=== PATIENT | male | born 1945 | race Caucasian/White ===

== ENCOUNTER 2018-09-05 13:33 | Observation (INO) | payer MEDICARE ==
--- NOTE | 2018-09-05 13:59 | ED ---
Altered Mental Status - HPI Summary HPI Summary: The patient is a 73 y/o M presenting to [facility] as transfer from [facility] for AMS and confusion, per , starting this morning. Patient had amnesia to events from this morning as well as yesterday. He states that he is unsure if the events were a dream or if it was a memory. Patient was noted to have abrasions to left hand unsure of how he got that. He notes that he always goes to his barn to exercise at 0900, which is where his found him wandering confusedly around. He denies MARTINEZ, neck pain, CP, and abd pain at this time. His pressure elevated to 200 systolic in the ED, and he reports moderate HTN hx. FHx : cardiac disease. No previous neuro hx. Head CT was unremarkable at the time that the patient had persistent amnesia, so he was transferred to [facility] for further workup. ECG at [facility] shows peaked T waves in V2 through V5. - History Of Current Complaint Chief Complaint: EDAltMentalStatus Stated Complaint: MEMORY LOSS PER EMS Time Seen by Provider: 09/05/18 13:34 Hx Obtained From: Patient, Family/Sensitometrist - , Other: - [facility] Onset/Duration: Still Present Timing: Lasting Hours - starting at 0900 Severity Initially: Severe Severity Currently: Severe Character: Confusion Aggravating Factor(s): Unknown Alleviating Factor(s): Unknown Associated Signs And Symptoms: Negative: Headache - Allergies/Home Medications Allergies/Adverse Reactions: Allergies Allergy/AdvReac Type Severity Reaction Status Date / Time Penicillins Allergy Unknown Verified 09/05/18 14:40 Reaction Details Home Medications: Home Medications Aspirin 81 mg CHEW TAB* [Aspirin Low Dose TAB*] 81 mg PO DAILY 09/05/18 [ History Confirmed 09/05/18] Bimatoprost 0.01% OPHTH (NF) [Lumigan 0.01% OPHTH (NF)] 1 drop BOTH EYES QPM [History Confirmed 09/05/18] Timolol 0.5% OPTH.TRACY* [Timoptic 0.5% Opth*] 1 drop BOTH EYES DAILY 09/05/18 [ History Confirmed 09/05/18] PMH/Surg Hx/FS Hx/Imm Hx Endocrine/Hematology History: Denies: Hx Diabetes Cardiovascular History: Reports: Hx Hypertension Sensory History: Reports: Hx Contacts or Glasses Opthamlomology History: Reports: Hx Contacts or Glasses - Surgical History Surgical History: Yes Surgery Procedure, Year, and Place: tonsillectomy Infectious Disease History: No Infectious Disease History: Denies: Traveled Outside the [place] in Last 30 Days - Family History Known Family History: Positive: Cardiac Disease, Other - cancer - Social History Alcohol Use: None Alcohol Amount: unk 09/05/18 Hx Substance Use: Yes Substance Use Type: Reports: None Hx Tobacco Use: No Smoking Status (MU): Never Smoked Tobacco Review of Systems Negative: Chest Pain Negative: Abdominal Pain Positive: Other - NEGATIVE: neck pain Positive: Other - abrasions on left knuckles Neurological: Other - confusion, amnesia Negative: Headache All Other Systems Reviewed And Are Negative: Yes Physical Exam - Summary Physical Exam Summary: Constitutional: Well-developed, Well-nourished, Alert. (-) Distressed Skin: Warm, Dry HENT: Normocephalic; Atraumatic Eyes: Conjunctiva normal Neck: Musculoskeletal ROM normal neck. (-) JVD, (-) Nuchal rigidity Cardio: Rhythm regular, rate normal, Heart sounds normal; Intact distal pulses; Radial pulses are 2+ and symmetric. (-) Murmur Pulmonary/Chest wall: Effort normal. (-) Respiratory distress, (-) Wheezes, (-) Rales Abd: Soft. (-) Tenderness, (-) Distension, (-) Guarding, (-) Rebound Musculoskeletal: (-) Edema Lymph: (-) Cervical adenopathy Neuro: Alert, PERRL, Oriented x3 with repetitive questioning, Strength normal, Cranial nerves II-XII are grossly intact. SILT, Strength 5/5 BUE and BLE Psych: Mood and affect Normal Triage Information Reviewed: Yes Vital Signs On Initial Exam: Initial Vitals Temp Pulse Resp BP Pulse Ox 98.5 F 61 16 156/116 99 09/05/18 13:36 09/05/18 13:36 09/05/18 13:36 09/05/18 13:36 09/05/18 13:36 Vital Signs Reviewed: Yes - Kelsey Coma Scale Best Eye Response: 4 - Spontaneous Best Motor Response: 6 - Obeys Commands Best Verbal Response: 4 - Confused Coma Scale Total: 14 Diagnostics - Vital Signs Vital Signs Temp Pulse Resp BP Pulse Ox 09/05/18 13:44 62 12 147/96 100 09/05/18 13:38 59 99 09/05/18 13:36 98.5 F 61 16 156/116 99 - Laboratory Lab Statement: Any lab studies that have been ordered have been reviewed, and results considered in the medical decision making process. - EKG 1404 Cardiac Rate: Bradycardia - 58 bpm EKG Rhythm: Sinus Bradycardia Summary of EKG Findings: An EKG taken at 1404 reveals sinus bradycardia at 58 bpm, nml axis, nml intervals. No STEMI. No acute changes. Re-Evaluation - Re-Evaluation First Eval Re-Evaluation Time: 14:00 Comment: I discussed admission with the patient. Altered Mental Statu Course/Dx - Course Course Of Treatment: 73-year-old male who presents with altered mental status. Given that this patient has normal O2, BG, hypoxia and hypoglycemia less likely. Labs at outside hospital unremarkable for signs of infection. Urinalysis clear. Electrolyte abnormalities. DDx also includes transient global amnesia, PRESS syndrome, hypertensive emergency. Plan for admit to medicine, MRI, neuro consult. - Diagnoses Provider Diagnoses: Transient global amnesia - Provider Notifications Discussed Care Of Patient With: Facundo Parson - neurology Time Discussed With Above Provider: 13:55 Instructed by Provider To: Other - I spoke with Dr. Parson concerning the patient s case, and he agrees with admission. He recommends Brain MRI. Dr. Deutsch accepts the patient for admission at 1400. Discharge - Sign-Out/Discharge Documenting (check all that apply): Patient Departure - Patient is accepted for admission by Dr. Deutsch. Patient Received Moderate/Deep Sedation with Procedure: No - Discharge Plan Condition: Stable Disposition: ADMITTED TO [facility] Referrals: Emi Serra MD [Primary Care Provider] - - Billing Disposition and Condition Condition: STABLE Disposition: Admitted to [facility] - Attestation Statements Document Initiated by Scribe: Yes Documenting Scribe: Elisha Jorgensen Provider For Whom Scribe is Documenting (Include Credential): Dr. Booker Mata MD Scribe Attestation: IElisha, scribed for Dr. Booker Mata MD on 09/05/18 at 1622. Scribe Documentation Reviewed: Yes Provider Attestation: The documentation as recorded by the scribe, Elisha Jorgensen accurately reflects the service I personally performed and the decisions made by me, Dr. Booker Mata MD Status of Scribjean Document: Viewed
[2018-09-05] MEDS ORDERED: Acetaminophen TAB* 325 MG PO PRN (14:48)
[2018-09-05] MEDS ORDERED: Latanoprost 0.005%* 2.5 ml BTL BOTH EYES SCH (18:00)
[2018-09-05] MEDS ORDERED: PTO:Bimatoprost 0.01% OPHTH (NF) 2.5 ML BTL BOTH EYES SCH (19:35)
--- NOTE | 2018-09-05 20:34 | CONS ---
NEUROLOGY CONSULTATION NOTE: DATE OF CONSULT: 09/05/18. CONSULTING PROVIDER: Dr. Zuri Deutsch. REASON FOR CONSULT: Amnesia. CHIEF COMPLAINT: "I'm losing my memory." HISTORY OF PRESENT ILLNESS: Mr. 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 The patient was in normal state of health at 8:55 a.m. He informed his partner that he is going to the barn to start stretching before the daily exercise. They usually ride a stationary bike right around 9:30. The patient started stretching at 9:01 but came back in the house at 9:30. His partner was confused why he came back into the house and not waiting for her in the barn. So, when asked what was going on, the patient stated that he does not know. Apparently, he had hurt his left wrist that caused a minor scabbing. He also had just lost his memory. He does not recall where he is, can recall his date, age, or what he was supposed to be doing. The patient also had worked on a dock over the last few months and he does not remember building it. He was rushed to [facility] for further evaluation. He had a CT of the head at [facility], which reported to be negative. An NIH stroke scale at [facility] was reported to be 2, but today the NIH stroke was 1 , for not knowing exactly his name, but knowing his date and current location. The patient has never had any issues with memory prior to this incidence. According to his partner, the patient's Fitbit had recorded a heart rate of 130. This was at 9:01 a.m. Also at [facility] the patient's systolic blood pressure was in the 200s. Currently, his systolic blood pressure is 160 to 180. The patient took aspirin this morning as he was telling his partner that he thinks he is having a mini stroke. There is no focal weakness or paresthesias. There is no reported history of double vision or blurry vision. He has a history of glaucoma and has baseline visual field deficit mostly in the superior nasal quadrant. Labs, imaging, other diagnostic testing as mentioned in the HPI. PAST MEDICAL HISTORY: Glaucoma, hypertension for which the patient discontinued his antihypertensive medications 3 months ago as he was working out and checking his blood pressure regularly, which was normal. The patient stated that his blood pressure currently is elevated because of white coat hypertension. The patient was a former smoker, but quit when he was 29 years of age. HOME MEDICATIONS: 1. Timolol 0.5%. 2. Bimatoprost 0.01%. 3. Aspirin 81 mg p.o. daily. FAMILY HISTORY: No family history of stroke or seizures. 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 He is not . He has a partner for 26 years. He drinks wine daily. REVIEW OF SYSTEMS: A 14-point review of systems was obtained. Otherwise negative except for what is mentioned in the HPI. PHYSICAL EXAMINATION: Vital Signs: Temperature of 98.5, heart rate of 62, respiratory rate of 19, blood pressure of 164/107. General: Well-nourished, well- developed man in no distress. Head: Atraumatic, normocephalic. Eyes: Conjunctivae/corneas are clear. Neck is supple and symmetrical with no carotid bruits. Respiratory: Clear to auscultation bilaterally with no wheezing or rhonchi. Cardiovascular: Regular rate and rhythm with normal S1, S2. Extremities: No hammertoes or high arches. Skin: Slight skin abrasion on the left extensor portion of the hand. Psych: Normal affect and mood, easy to establish rapport, although the patient is redundant and perseverates in speech. Neurological Examination: Mental Status: Awake, alert, and oriented to person; place, he thought he was at [place] and time, he was unable to tell me the date or the day, but he knew the year. He knew his date. Speech and Language including fluency, repetition, and comprehension were assessed and found to be normal. Cranial nerves: Pupils equal, round and reactive to light. Extraocular muscles are intact, no facial asymmetry. Normal sensation to light touch throughout. Tongue is symmetric and midline with no atrophy or fasciculation. Motor Examination: Normal bulk and tone throughout. No fasciculation. Strength is 5/5 in the upper and lower extremities distally and proximally. Reflexes 2+ in the brachioradialis, biceps, and triceps. Knees are 1+ bilaterally, 0 at the ankles bilaterally. Flexor plantar response bilaterally. Sensation is intact to light touch throughout. Vibration is 12 seconds on the right and 10 seconds on the left great toes. Proprioception is intact bilaterally. Coiiht-[id number] and heel-to- garcia testing is normal. Gait: Wide- based but normal strength and posture. No ataxia. ASSESSMENT AND RECOMMENDATION: Mr. Roddy Miller is a 73-year-old fairly healthy man who prior to starting an exercise program developed sudden onset amnesia. The differential diagnosis here is mostly likely transient global amnesia. However, there are reported cases of possible temporal or thalamic stroke mimicking transient global amnesia and therefore a vascular-induced phenomenon should be further evaluated. Lastly, temporal lobe seizures, although I doubt it in this case, but should also be further evaluated. The patient would never have been a tPA candidate given the low NIH stroke scale and the low suspicion for stroke. Other differential diagnosis would be hypertensive encephalopathy or reversible posterior encephalopathy related to sudden surge in blood pressure. Recommendation: Please admit under the hospitalist service. Continue telemetry. The patient will need neuro checks every 4 hours. I have ordered an EEG for tomorrow morning as well as an MRI of the brain with or without contrast to evaluate for any structural abnormalities in the temporal lobe. The patient has taken aspirin at home today, but if there is evidence of stroke on the MRI, please increase the dose of aspirin to 162 mg daily. He would also require statin therapy. The increase in aspirin should only be done if the patient has a stroke, which I do not suspect. Defer blood pressure management to the primary team, but the patient's goal systolic blood pressure should be within normal range. The patient should not be driving or operating any heavy machine unless his symptoms completely recover and resolve. I will continue to follow. TIME SPENT: I spent a total of 70 minutes of which more than 50%was spent obtaining history, examining the patient, education and counseling, and discussing the treatment plan with the patient and the primary team. [id number]/[facility] #: [id number] JIM
[2018-09-05] MEDS ORDERED: Enoxaparin(*) 40 MG/0.4 ML SYR SUBCUT SCH (21:00)
--- NOTE | 2018-09-05 21:33 | HP ---
CC: Emi Serra M.D. * HISTORY AND PHYSICAL: DATE OF ADMISSION: 09/05/18. PRIMARY CARE PROVIDER: Emi Serra M.D. CHIEF COMPLAINT: Amnesia. HISTORY OF PRESENT ILLNESS: Mr. Miller is a 73-year-old male, who reportedly had been in his usual state of health up until the morning of admission. He got out of bed. He had his coffee. He and his took the dog for a walk. When they arrived home, he went out to his barn to do stretches and continue his exercise for the morning. He came out of the barn around 9:30 and told his , "I don't remember since that time." He cannot hold onto any memories. He states that he does not remember going to bed last time and he does not remember dinner. He does not really remember any of the events of yesterday. He does not remember any of the events of today. He also does not remember completing a dock that he had been building over the last few months, installing the boat lift, or taking out the boat yesterday. The patient had no focal neurologic deficits at the time of the onset of the symptoms. The patient denies any pain. He did take aspirin per his . PAST MEDICAL HISTORY: 1. Hypertension of which the patient weaned himself off blood pressure medication a few months ago. 2. Glaucoma. PAST SURGICAL HISTORY: Tonsillectomy. MEDICATIONS: 1. Aspirin 81 mg p.o. daily. 2. Timolol 1 drop OU q.a.m. 3. Lumigan 1 drop OU nightly. ALLERGIES: Possibly PENICILLIN. FAMILY HISTORY: Mom had colon cancer. Dad had coronary disease. SOCIAL HISTORY: The patient was a smoker, but quit back in his early 30s. He drinks alcohol on occasion. 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 He is . He has 2 children. REVIEW OF SYSTEMS: A complete 11-system review of systems was obtained. Pertinent positives and negatives are as per HPI and otherwise negative. PHYSICAL EXAMINATION GENERAL: The patient is a well-developed, elderly male, who appears younger than his stated age, seen sitting up in the stretcher, in no acute distress. VITAL SIGNS: Blood pressure 133/74, pulse 55, respirations 20, temp 98.5, O2 sat 100% on room air. HEENT: Pupils are equal and round. There is evidence of prior cataract extraction. Extraocular muscles are intact. Oropharynx is clear. Oral mucosa is moist. NECK: There is no submandibular, cervical or supraclavicular adenopathy. Thyroid is not enlarged. No thyroid nodules are noted. PULMONARY: Lungs are clear to auscultation bilaterally. CARDIAC: Normal S1 and S2. Regular rate and rhythm. I do not appreciate any murmurs. ABDOMEN: Bowel sounds are present. Abdomen is soft, nontender, nondistended. MUSCULOSKELETAL: There is no cyanosis or clubbing of the digits. There is full active range of motion of all 4 extremities. NEUROLOGIC: Cranial nerves II through XII are grossly intact. Sensation is intact to light touch throughout. Strength is 5/5 and symmetric in both the upper and lower extremities bilaterally. SKIN: Warm and dry. There are no rashes. PSYCH: The patient is alert. He is not oriented. Affect appears appropriate. LABORATORY DATA/DIAGNOSTIC STUDIES: Sodium 139, potassium 4.8, chloride 104, CO2 of 25, BUN 27, creatinine 1.3, glucose 111, calcium 9.1, magnesium 2.0, bilirubin 0.5. AST 29, ALT 31, alk phos 82. CPK 199, CK-MB 6, troponin 0.01. Albumin 3.7. INR is 0.9. WBC 5.76, hemoglobin 13.0, hematocrit 39.8, platelets 206. Urinalysis reveals specific gravity of 1.005 and negative signs of infection. CT brain: No acute intracranial abnormality. ASSESSMENT AND PLAN: Mr. Miller is a 73-year-old male with a history of hypertension, though not on medications as of late and glaucoma, who presented initially to [facility] with memory loss and then subsequently transferred to [facility] for neurology evaluation and now is being admitted for monitoring a probable transient global amnesia. 1. Transient global amnesia. At this point, the patient's symptoms are most consistent with transient global amnesia. It is possible he could have a small stroke. MRI with and without contrast has been ordered by Dr. Parson, and has an EEG. The patient will have neuro checks q.4 hours. He will be reoriented as needed. He already took an aspirin on the morning of admission. He will continue on aspirin 81 mg p.o. daily. 2. Hypertension. The patient's blood pressure initially at [facility] had a systolic grater than 200. He was given clonidine 0.2 mg p.o. x1. With this, his blood pressure has been under relatively decent control at [facility]. I am going to initiate amlodipine 5 mg p.o. daily if he is hypertensive tomorrow. 3. Glaucoma. Continue eyedrops as ordered. 4. DVT prophylaxis. According to the Adult Thrombosis Prophylaxis Risk Factor Assessment Guide, the patient has a total risk factor score of 3, making him high risk. Lovenox 40 mg subcutaneous daily and will be utilized for DVT prophylaxis. 5. Code status is full. TIME SPENT: 65 minutes was spent admitting this patient. [id number]/[facility] #: [id number] JIM
[2018-09-06] MEDS ORDERED: amLODIPine TAB* 5 MG PO SCH (09:00)
[2018-09-06] MEDS ORDERED: Aspirin 81 mg CHEW TAB* 81 MG TAB.CHEW PO SCH (09:00)
[2018-09-06] MEDS ORDERED: PTO:Timolol 0.5% OPTH.SOL* BTL BOTH EYES SCH (09:00)
[2018-09-06] MEDS ORDERED: Gadoteridol* (CONTRAST) 279.3 MG/ML 10 ML IV ONE (11:34)
[2018-09-06 12:22] VITALS: BP 155/77
--- NOTE | 2018-09-06 14:11 | EEG ---
ELECTROENCEPHALOGRAM REPORT: DATE OF STUDY: 09/06/18 LOCATION: He is an inpatient in room 445. REFERRING PROVIDER: Dr. Parson. CLINICAL PROBLEM: Episode of amnesia yesterday. MEDICATIONS: Include: 1. Lovenox. 2. Timolol. 3. Aspirin. 4. Norvasc. REPORT: This 19-channel EEG is remarkable for background rhythms consisting of a well-formed alpha rhythm in the occipital derivations at 9 cycles per second, which is symmetric and suppressed by eye opening. Low voltage bifrontal beta rhythms are noted and are also symmetric. The patient is awake. Activation procedures are not attempted. The patient does not appear to drowse or sleep during the recording. There are no clinical events. There are no focal, lateralized, or epileptiform abnormalities. INTERPRETATION: Normal awake EEG. [id number]/[facility] #: [id number] [facility] HOSPITALEnrique
--- NOTE | 2018-09-06 21:18 | DS ---
CC: Emi Serra M.D.* DISCHARGE SUMMARY: DATE OF ADMISSION: 09/05/18 DATE OF DISCHARGE: 09/06/18 PRIMARY CARE PROVIDER: Emi Serra M.D. PRINCIPAL DIAGNOSES: 1. Transient global amnesia. 2. Possible hypertension. 3. Glaucoma. DISCHARGE MEDICATIONS: 1. Timolol 1 drop to both eyes daily. 2. Bimatoprost 1 drop to both eyes daily. 3. Aspirin 81 mg p.o. daily. HOSPITAL COURSE: Mr. Miller is a 73-year-old male who had woke up yesterday feeling to be in his normal state of health; however, around 9:30 a.m., noted that he could not remember anything. He told his that he could not remember anything. He was concerned for stroke, so he fumbled around at home trying to find aspirin per his . He continued to be quite confused and therefore was taken to [facility] for evaluation. At [facility], the patient was found to have memory loss. He was subsequently transferred to [facility] for neurology evaluation. The patient once arriving to [facility] was noted to have significant memory loss. He did not remember what he done the day prior nor things that he had been working on over the last couple of months. It was felt that his symptoms were most likely secondary to transient global amnesia. The patient was seen in consultation by Dr. Parson who recommended EEG and MRI. The patient was monitored on the floor overnight. His memory did come back. There are still bits of time from yesterday that he does not recall; however, generally he can recall most of the events of yesterday. There are couple hours that are still missing. He underwent MRI of the brain, which did not reveal any acute findings. He also underwent, EEG which was reportedly a normal awake EEG. Due to the negative testing and the return of the patient's memory, it was felt that the patient likely did suffer from transient global amnesia. At this point , he is felt to be stable for discharge home. On the day of discharge, the patient is awake, alert, and oriented, in no acute distress. Cardiac exam revealed a normal S1, S2, regular rate and rhythm without any murmurs. Lungs are clear to auscultation bilaterally. Abdomen is soft, nontender, nondistended. Of note, the patient did have markedly elevated blood pressure at [facility]. He was given a dose of clonidine due to the elevated blood pressure. His blood pressures subsequently improved and on the morning of discharge were down to 131/71. I do see as the day progressed, his blood pressure did elevate into a moderately high range. The patient states he checks his blood pressure at home and usually is in the 130 systolic range. I did not start him on an antihypertensive at this time; however, he should follow up with his PCP to have his blood pressure checked and ensure that his blood pressure is at goal. FOLLOWUP CONCERNS: The patient is being discharged home today, 09/06/18. Activity level is as tolerated. Diet is regular. CONDITION ON DISCHARGE: Stable. FOLLOWUP: The patient should follow up with his primary care provider, Dr. Serra in the next 4 to 7 days. TIME SPENT: Twenty-five minutes was spent discharging this patient. [id number]/[facility] #: [id number] JIM
== END 2018-09-06 21:41 | disposition home or self-care (01) ==
LOC: ED 13:33 → MEDTELE 14:48
PROVIDERS: ADMIT Hospitalist; ATTEND Hospitalist
DX: G45.4 Transient global amnesia (principal); I10 Essential (primary) hypertension; H40.9 Unspecified glaucoma; Z79.82 Long term (current) use of aspirin; Z79.899 Other long term (current) drug therapy; Z88.0 Allergy status to penicillin
CPT/HCPCS: 70553; 93005; 95816; 96372; 99284; A9270-GY; A9579; G0378; J1650